=== PATIENT | female | born 1965 | race Caucasian/White ===

== ENCOUNTER 2021-02-03 12:35 | Emergency (ER) | payer OTHER ==
[~2021-02-03] VITALS: Ht 154 cm; Wt 63.0 kg
--- OUTSIDE RECORDS SUMMARY | 2021-02-03 12:43 | XMS REPORT | Clinical Summary ---
Author Author [facility] Organization [facility] Address Unknown Phone Unavailable Care Team Providers Care Line Haul Driver Name Role Phone No, Pcp CHILD CARE NURSE PCP Unavailable Allergies No known active allergies Medications No known medications Active Problems Not on file Encounters Not on filefrom Last 3 Months Immunizations Not on file Social History Date Tobacco Use Types Packs/Day Years Used Never Smoker Smokeless Tobacco: Never Used Tobacco Cessation: Counseling Given: No Sex Assigned at Date Recorded Not on file Last Filed Vital Signs Reading Time Taken Comments Vital Sign 110/80 07/22/2016 3:38 PM CDT Blood Pressure 72 07/22/2016 3:38 PM CDT Pulse 36.9 °C (98.4 °F) 07/22/2016 3:38 PM CDT Temperature 18 07/22/2016 3:38 PM CDT Respiratory Rate 98% 07/22/2016 3:38 PM CDT Oxygen Saturation - - Inhaled Oxygen Concentration - - Weight - - Height - - Body Mass Index Plan of Treatment Health Maintenance Due Date Last Done Comments Cervical Cancer: 05/07/1987 Screening Annual FOBT: Colon Cancer 2016 Screening Breast Cancer: Screening 2016 Mammogram Colonoscopy 2016 Goals Not on file Implants Not on file Procedures Not on filefrom Last 3 Months Results Not on filefrom Last 3 Months Additional Health Concerns Not on file Insurance Type Payer Benefit Subscriber ID Effective Phone Address Plan / Dates Group [facility] 1 [id number] 2020- [employer] [id number] Care Teams Start Date End Date Line Haul Driver Relationship Specialty 07/22/16 No, Pcp, CHILD CARE NURSE PCP - General N/A Do not use
[2021-02-03] MEDS ORDERED: KETOROLAC 30 MG/ML VIAL IVP STA (12:58)
[2021-02-03] MEDS ORDERED: NS IV 1000 ML 1,000 ML IV STA ×2 (12:58→14:17)
[2021-02-03] MEDS ORDERED: ONDANSETRON 4 MG/2 ML (SDV) Z0FRAN IVP STA (12:58)
--- NOTE | 2021-02-03 13:02 | ED Abdominal Pain ---
General Stated Complaint: ABD PAIN Source of Information: Patient History of Present Illness Date Seen by Provider: Feb 03, 2021 Time Seen by Provider: 12:37 Initial Comments 55-year-old female presenting with right lower quadrant abdominal pain since last night. She states that this came on around 7 PM and has been sharp in nature. She also was having some urinary urgency and frequency last night. After urination it did seem to help with her pain but her pain never completely went away. She was having subjective fevers and chills. She had nausea but no vomiting. She has not ate or drink anything since last night when she took some Aleve after getting home from [place] [employer] [place] the city. She had tried going to the clinic today and they told her that with a concern for appendicitis since she had pain in the right lower quadrant and flank they wanted her to get a CT. Since insurance would not approve it to be done today they advised her to go to the emergency department to have it done right away to evaluate for appendicitis, rather than wait up to 72 hours for decision from her insurance company. Timing/Duration: 12-24 Hours Severity/Quality: Severe, Sharp Location: RLQ, Flank (right) Radiation: RLQ, Flank (right flank to RLQ) Activities at Onset: None Modifying Factors: Worsens With Movement, Worsens With Palpation; Improves With Urinating (helped but did not make pain go away completely) Associated Symptoms: No Back Pain, No Chest Pain, No Diaphoresis; Fever/Chills (subjective); No Fatigue, No Headache, No Heartburn; Nausea/Vomiting (nausea but no vomiting); No Rash, No Shortness of Air, No Swelling/Mass in Abdomen, No Syncope, No Weakness Allergies and Home Medications Allergies Coded Allergies: No Known Drug Allergies (Unverified , 02/03/21) Patient Home Medication List Home Medication List Reviewed: Yes Fluconazole (Fluconazole) 150 Mg Tablet, 150 MG PO DAILY Prescribed by: MERRICK PORTER on 02/03/21 1443 Ondansetron (Ondansetron Odt) 4 Mg Tab.rapdis, 4 MG PO Q6H PRN for NAUSEA/VOMITING Prescribed by: MERRICK PORTER on 02/03/21 1443 Phenazopyridine HCl (Phenazopyridine HCl) 200 Mg Tablet, 200 MG PO TID PRN for flank pain/urine pain Prescribed by: MERRICK PORTER on 02/03/211442 Sulfamethoxazole/Trimethoprim (Bactrim Ds Tablet) 1 Each Tablet, 1 EACH PO BID Prescribed by: MERRICK BRADFORDRT on 02/03/211442 Review of Systems Review of Systems Constitutional: see HPI EENTM: No Symptoms Reported Respiratory: No Symptoms Reported Cardiovascular: No Symptoms Reported Gastrointestinal: See HPI Genitourinary: See HPI Musculoskeletal: other (generalized body aches/pain ) Skin: No rash Psychiatric/Neurological: Denies Headache; Weakness (feels weak all over) Past Gfbyjra-Bicfca-Iiqdgb Hx Patient Social History Tobacco Use?: No Substance use?: No Past Medical History Surgery/Hospitalization HX: Uterine Ablation, Section, Uterine Fibroid removal Surgeries: Yes Section Respiratory: No Cardiac: No Neurological: No Reproductive Disorders: Yes (Uterine Fibroids, Ablation) Genitourinary: Yes Bladder Infection Gastrointestinal: No Musculoskeletal: Yes Arthritis (especially pelvic after hx of accident with pelvic fractures) Endocrine: No HEENT: No Cancer: No Psychosocial: No Physical Exam Vital Signs Vital Signs - First Documented 02/03/21 13:15 Temp 36.9 Pulse 111 Resp 16 B/P (MAP) 127/77 (94) O2 Delivery Room Air Capillary Refill : Height/Weight/BMI Height: '" Weight: lbs. oz. 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-XII nml as tested, alert, oriented x 3 Skin: normal color, warm/dry Images 1 - right flank pain radiating to RLQ Progress/Results/Core Measures Results/Orders Lab Results Laboratory Tests Test 02/03/21 12:40 02/03/21 12:55 Range/Units Urine Color YELLOW Urine Clarity CLOUDY H Urine pH 6.0 5-9 Urine Specific [place] >=1.030 1.016-1.022 Urine Protein NEGATIVE NEGATIVE Urine Glucose (UA) NEGATIVE NEGATIVE Urine Ketones 1+ H NEGATIVE Urine Nitrite NEGATIVE NEGATIVE Urine Bilirubin NEGATIVE NEGATIVE Urine Urobilinogen 0.2 < = 1.0 MG/DL Urine Leukocyte Esterase 1+ H NEGATIVE Urine RBC (Auto) TRACE H NEGATIVE Urine RBC 0-2 /HPF Urine WBC 50-100 H /HPF Urine Squamous Epithelial Cells 10-25 H /HPF Urine Crystals NONE /LPF Urine Bacteria LARGE H /HPF Urine Casts NONE /LPF Urine Mucus MODERATE H /LPF Urine Culture Indicated YES White Blood Count 16.4 H 4.3-11.0 10^3/uL Red Blood Count 4.55 3.80-5.11 10^6/uL Hemoglobin 13.3 11.5-16.0 g/dL Hematocrit 40 35-52 % Mean Corpuscular Volume 88 80-99 fL Mean Corpuscular Hemoglobin 29 25-34 pg Mean Corpuscular Hemoglobin Concent 33 32-36 g/dL Red Cell Distribution Width 13.5 10.0-14.5 % Platelet Count 290 130-400 10^3/uL Mean Platelet Volume 9.4 9.0-12.2 fL Neutrophils (%) (Auto) 86 H 42-75 % Lymphocytes (%) (Auto) 7 L 12-44 % Monocytes (%) (Auto) 7 0-12 % Eosinophils (%) (Auto) 0 0-10 % Basophils (%) (Auto) 0 0-10 % Neutrophils # (Auto) 14.0 H 1.8-7.8 X 10^3 Lymphocytes # (Auto) 1.1 1.0-4.0 X 10^3 Monocytes # (Auto) 1.1 H 0.0-1.0 X 10^3 Eosinophils # (Auto) 0.0 0.0-0.3 10^3/uL Basophils # (Auto) 0.1 0.0-0.1 10^3/uL Neutrophils % (Manual) 70 % Lymphocytes % (Manual) 8 % Monocytes % (Manual) 10 % Eosinophils % (Manual) 0 % Basophils % (Manual) 0 % Band Neutrophils 12 % Platelet Estimate NORMAL Blood Morphology Comment NORMAL Sodium Level 137 135-145 MMOL/L Potassium Level 3.9 3.6-5.0 MMOL/L Chloride Level 101 98-107 MMOL/L Carbon Dioxide Level 22 21-32 MMOL/L Anion Gap 14 5-14 MMOL/L Blood Urea Nitrogen 29 H 7-18 MG/DL Creatinine 0.77 0.60-1.30 MG/DL Estimat Glomerular Filtration Rate 78 BUN/Creatinine Ratio 38 Glucose Level 106 H 70-105 MG/DL Calcium Level 9.6 8.5-10.1 MG/DL Corrected Calcium 9.3 8.5-10.1 MG/DL Total Bilirubin 0.6 0.1-1.0 MG/DL Aspartate Amino Transf (AST/SGOT) 23 5-34 U/L Alanine Aminotransferase (ALT/SGPT) 21 0-55 U/L Alkaline Phosphatase 59 40-136 U/L Total Protein 7.4 6.4-8.2 GM/DL Albumin 4.4 3.2-4.5 GM/DL Lipase 29 8-78 U/L My Orders Orders - MERRICK PORTER MD Comprehensive Metabolic Panel (02/03/21 12:42) Lipase (02/03/21 12:42) Ua Culture If Indicated (02/03/21 12:42) Ed Iv/Invasive Line Start (02/03/21 12:42) Cbc With Automated Diff (02/03/21 12:42) Ns Iv 1000 Ml (Sodium Chloride 0.9%) (02/03/21 12:58) Ondansetron Injection (Zofran Injectio (02/03/21 12:58) Ketorolac Injection (Toradol Injection) (02/03/21 12:58) Ct Abd/Pelvis Wo(Kidney Stone) (02/03/21 12:58) Manual Differential (02/03/21 12:55) Urine Culture (02/03/21 12:40) Ns Iv 1000 Ml (Sodium Chloride 0.9%) (02/03/21 14:17) Ceftriaxone (Rocephin) (02/03/21 14:17) Ceftriaxone 1 Gm Pre-Mix (Rocephin 1 Gm (02/03/21 14:25) Vital Signs/I&O 02/03/21 13:15 Temp 36.9 Pulse 111 Resp 16 B/P (MAP) 127/77 (94) O2 Delivery Room Air Progress Progress Note #1: Progress Note Obtain basic labs as well as urinalysis. Give IV fluids for hydration, Zofran for nausea, Toradol 15 mg IV for pain. Patient states that she is very sensitive to any pain medicines even ibuprofen and Aleve especially if she has not had anything on her stomach. Obtain a CT scan of the abdomen and pelvis without contrast to evaluate for possible kidney stone versus appendicitis versus colitis versus diverticulitis versus pyelonephritis versus cystitis versus ovarian cyst. Progress Note #2: Progress Note Labs showed no signs of urinary tract infection with dehydration since she has a specific gravity greater than 1.030. She has leukocyte esterase with large amount of bacteria and 50-100 white blood cells. A culture will be sent. Her electrolytes and blood count did not show acute significant normality. She was feeling better after treatment but still having some tenderness in her right flank. Counseled that the CT scan showed stones in both kidneys but nothing in the ureter. She had no signs of appendicitis as she had the appendix well visualized and there was no inflammation, fluid, swelling. Reassured patient and family and will discharge on Bactrim DS and Zofran if needed. Give a gram of Rocephin IV here along with an additional liter of normal saline for hydration. Also sent a prescription for Pyridium if needed to help with pain in her urinary tract. Counseled that it will make her urine a bright orange is red color. Advised that she could use Diflucan or fluconazole at the end of her antibiotic course if needed for yeast infection. If she was having symptoms of a UTI prior to finishing the antibiotics she could use ehmu-oot-tfigkiz medicine such as Monistat. Follow-up for continued or worsening symptoms and seek medical care for further evaluation Diagnostic Imaging Diagonstic Imaging: CT Plain Films/CT/US/NM/MRI: abdomen, pelvis Comments [facility], [place] NAME: DESHAWN DURÁN [facility] REC#: [id number] PT STATUS: REG ER : 1965 PHYSICIAN: MERRICK PORTER MD ADMIT DATE: 02/03/21/ER FS Draft Date of Exam:02/03/21 CT ABD/PELVIS WO(KIDNEY STONE) PROCEDURE: CT urinary tract, rule out kidney stone. TECHNIQUE: Multiple contiguous axial images were obtained through the abdomen and pelvis without the use of intravenous contrast. Auto Exposure Controls were utilized during the CT exam to meet ALARA standards for radiation dose reduction. INDICATION: Right lower quadrant abdominal pain as well as right flank pain and nausea. COMPARISON: No prior studies are available for comparison. FINDINGS: The lung bases are clear. Liver contains a circumscribed low-attenuation lesion in the left lobe approximately 8 mm in size. It is to small to characterize but likely small cyst. Gallbladder is unremarkable. There is no biliary ductal dilatation. Pancreas and spleen are unremarkable. No adrenal mass is detected. Both kidneys contain nonobstructing calculi. No definite ureteral calculi or hydronephrosis is seen. Aorta is nonaneurysmal. Small and large bowel loops are normal in caliber. There is no obstruction. Appendix is visualized and unremarkable. No inflammatory changes are seen. There is no free fluid or fluid collection. Bladder is decompressed. The uterus is unremarkable. IMPRESSION: 1. Bilateral nonobstructing nephrolithiases. No definite ureteral calculi or hydronephrosis is seen. 2. No CT evidence of acute appendicitis. No acute feature is identified. Dictated on workstation # [id number] Dict: 02/03/21 1329 Trans: 02/03/21 1338 [id number] Interpreted by: DALE SMITH MD Electronically signed by: Reviewed: Reviewed by Me Departure Impression Primary Impression: Cystitis without hematuria Additional Impressions: Acute right flank pain Bilateral nephrolithiasis Dehydration Disposition: 01 HOME, SELF-CARE Condition: Stable Departure-Patient Inst. Decision time for Depature: 14:39 Referrals: JULIAN CASTLE MD (PCP) Primary Care Physician Patient Instructions: Dehydration, Adult ED, Flank Pain ED, Urinary Tract Infection, Adult ED Add. Discharge Instructions: Stay well-hydrated and drink plenty of water and fluids. Continue with acetaminophen or ibuprofen or naproxen if needed for pain. Make sure to take the full course of antibiotics to treat for urinary tract infection. You may use the dissolving nausea tablets to help keep your stomach settles he can eat and drink better. The Pyridium medicine will help with the pain in your flank and bladder but it will turn your urine a reddish-orange color. If you do develop a yeast infection from the antibiotic you could use kcrq-ayw-uhtwkup yeast medication such as Monistat and at the end of the course of antibiotics you could take the fluconazole or Diflucan pill to finish clearing up the yeast infection If you have continued symptoms or more concerns and problems check back with the clinic or return for further evaluation. Scripts Fluconazole (Fluconazole) 150 Mg Tablet 150 MG PO DAILY for Yeast infection for 1 Day, #1 TAB 1 Refill Prov: MERRICK PORTER MD 02/03/21 Phenazopyridine HCl (Phenazopyridine HCl) 200 Mg Tablet 200 MG PO TID PRN for flank pain/urine pain for 2 Days, #6 TAB 0 Refills Prov: MERRICK PORTER MD 02/03/21 Ondansetron (Ondansetron Odt) 4 Mg Tab.rapdis 4 MG PO Q6H PRN for NAUSEA/VOMITING for 5 Days, #20 TAB 0 Refills Prov: MERRICK PORTER MD 02/03/21 Sulfamethoxazole/Trimethoprim (Bactrim Ds Tablet) 1 Each Tablet 1 EACH PO BID for UTI for 10 Days, #20 TAB 0 Refills Prov: MERRICK PORTER MD 02/03/21 MERRICK PORTER MD Feb 03, 2021 13:02
[2021-02-03 13:21] LABS: BASOPHILS # (AUTO) 0.1 10^3/uL (0.0-0.1); BASOPHILS % (AUTO) 0 % (0-10); EOSINOPHILS % (AUTO) 0 % (0-10); HEMATOCRIT 40 % (35-52); HEMOGLOBIN 13.3 g/dL (11.5-16.0); LYMPHOCYTES # (AUTO) 1.1 X 10^3 (1.0-4.0); LYMPHOCYTES % (AUTO) 7 % (12-44); MEAN CORPUSCULAR HEMOGLOBIN 29 pg (25-34); MEAN CORPUSCULAR HGB CONC 33 g/dL (32-36); MEAN CORPUSCULAR VOLUME 88 fL (80-99); MEAN PLATELET VOLUME 9.4 fL (9.0-12.2); MONOCYTES # (AUTO) 1.1 X 10^3 (0.0-1.0); MONOCYTES % (AUTO) 7 % (0-12); NEUTROPHILS % (AUTO) 86 % (42-75); PLATELET COUNT 290 10^3/uL (130-400); WHITE BLOOD COUNT 16.4 10^3/uL (4.3-11.0)
[2021-02-03 13:22] LABS: CLARITY,URINE CLOUDY; COLOR,URINE YELLOW
[2021-02-03 13:23] LABS: BACTERIA,URINE LARGE /HPF; BILIRUBIN,URINE NEGATIVE (NEGATIVE); GLUCOSE, URINE (UA) NEGATIVE (NEGATIVE); KETONES,URINE 1+ (NEGATIVE); LEUKOCYTE ESTERASE ,URINE 1+ (NEGATIVE); NITRITE,URINE NEGATIVE (NEGATIVE); PROTEIN,URINE NEGATIVE (NEGATIVE); RBC,URINE 0-2 /HPF; WBC,URINE 50-100 /HPF
[2021-02-03 13:31] LABS: ALBUMIN 4.4 GM/DL (3.2-4.5); BILIRUBIN,TOTAL 0.6 MG/DL (0.1-1.0); CALCIUM 9.6 MG/DL (8.5-10.1); CREATININE SERUM 0.77 MG/DL (0.60-1.30); POTASSIUM 3.9 MMOL/L (3.6-5.0); TOTAL PROTEIN 7.4 GM/DL (6.4-8.2)
[2021-02-03 13:35] LABS: NEUTROPHILS % (MANUAL) 70 %
[2021-02-03 13:36] LABS: BAND NEUTROPHILS 12 %; BASOPHILS % (MANUAL) 0 %; EOSINOPHILS % (MANUAL) 0 %; LYMPHOCYTES % (MANUAL) 8 %; MONOCYTES % (MANUAL) 10 %; PLATELET ESTIMATE NORMAL; RBC MORPH NORMAL
--- NOTE | 2021-02-03 13:38 | Diagnostic Imaging Report ---
PROCEDURE: CT urinary tract, rule out kidney stone. TECHNIQUE: Multiple contiguous axial images were obtained through the abdomen and pelvis without the use of intravenous contrast. Auto Exposure Controls were utilized during the CT exam to meet ALARA standards for radiation dose reduction. INDICATION: Right lower quadrant abdominal pain as well as right flank pain and nausea. COMPARISON: No prior studies are available for comparison. FINDINGS: The lung bases are clear. Liver contains a circumscribed low-attenuation lesion in the left lobe approximately 8 mm in size. It is to small to characterize but likely small cyst. Gallbladder is unremarkable. There is no biliary ductal dilatation. Pancreas and spleen are unremarkable. No adrenal mass is detected. Both kidneys contain nonobstructing calculi. No definite ureteral calculi or hydronephrosis is seen. Aorta is nonaneurysmal. Small and large bowel loops are normal in caliber. There is no obstruction. Appendix is visualized and unremarkable. No inflammatory changes are seen. There is no free fluid or fluid collection. Bladder is decompressed. The uterus is unremarkable. IMPRESSION: 1. Bilateral nonobstructing nephrolithiases. No definite ureteral calculi or hydronephrosis is seen. 2. No CT evidence of acute appendicitis. No acute feature is identified. Dictated by: Dictated on workstation # [id number]
[2021-02-03] MEDS ORDERED: cefTRIAXone 1,000 MG in WATER (STERILE) FOR INJECTION 5 ML IV STA (14:17)
[2021-02-03] MEDS ORDERED: cefTRIAXone 1 GM PRE-MIX 50 ML IV ONE (14:25)
[2021-02-03] MEDS ORDERED: ONDA4TAB11 PO (14:43)
[2021-02-03] MEDS ORDERED: SULF1TAB38 PO (14:43)
[2021-02-03] MEDS ORDERED: PHEN-827 PO (14:43)
[2021-02-03] MEDS ORDERED: FLUC150T2 PO (14:43)
[2021-02-03 15:42] VITALS: BP 106/67
== END 2021-02-03 15:00 | disposition home or self-care (01) ==
LOC: ER FS 12:39
DX: N30.90 Cystitis, unspecified without hematuria (principal); N20.0 Calculus of kidney; E86.0 Dehydration
CPT/HCPCS: 36415; 74176; 80053; 81000; 83690; 85007; 85027; 87077; 87088; 87186

== ENCOUNTER → 2021-04-06 | Outpatient (CLI) | payer SELFPAY ==
[~2021-04-06] MED LIST: FLUC150T41 PO; ONDA4TAB11 PO; PHEN-827 PO; SULF1TAB38 PO
--- NOTE | 2021-04-06 14:12 | Diagnostic Imaging Report ---
INDICATION: Family history of coronary artery disease. Patient presents for CT cardiac calcium scoring study. TECHNIQUE: Noncontrast images of the heart are obtained, followed by calculation of cardiac scoring. Dose reduction protocol was used. FINDINGS: There are no enlarged nodes in the visualized portions of the mediastinum. The aorta is nonaneurysmal. Visualized portions of the lung banda are clear, the entirety of the lungs are not included on the study. There are no significant coronary artery calcifications detected. Calcium score was 0 in all territories. IMPRESSION: Coronary artery calcium score was 0, no detectable significant calcification. Dictated by: Dictated on workstation # [id number]
== END ==
LOC: RAD FS 12:54
PROVIDERS: ATTEND Nurse Practitioner Family
DX: Z82.49 Family history of ischemic heart disease and other diseases of the circulatory system (principal)
CPT/HCPCS: 75571